=== PATIENT | female | born 1995 | race Two or more races ===

== ENCOUNTER 2016-09-11 23:55 | Emergency (ER) | payer OTHER ==
--- NOTE | ~2016-09-11 | CR170 ---
[facility] A Service of [facility] & [facility] RADIOLOGY TEXT RESULTS PATIENT: JEANNETTE MCHUGH LOCATION: [facility] : 95 UNIT #: [id number] AGE: [address]: Marcos Boo MD SEX: F ORDER DR: [id number] [facility] [address] [place], [place] [address] [id number] E MR#: [id number] Acc #: [id number] NAME: JEANNETTE MCHUGH : 1995 SEX: F STUDY DATE/TIME: 09/11/2016 23:59 UNIT: [facility] ROOM: STUDY DESCRIPTION: CR Knee 2 Views Rt Attending Physician: Marcos Boo M.D. Ordering Physician: Ed Doctor [id number] [facility] Primary Care Physician: Primary Care Physician No MEDICAL IMAGING REPORT This report is preliminary unless electronic signature is present EXAM Right knee 09/11/2016 INDICATIONS 20-year-old female who fell at work. Pain in the right knee, 2 views right knee no comparisons. FINDINGS AP and lateral projection of the knee shows smooth articular anatomy without indication of fracture or dislocation at the major weight-bearing surface of the knee. There is no indication of radiopaque foreign body about the knee surface or joint effusion. IMPRESSION Normal right knee. Dictated by... Simon Wadsworth M.D. THIS IS AN ELECTRONICALLY VERIFIED REPORT Simon Wadsworth M.D. at 09/15/2016 9:12 AM Bonny TD: 09/12/2016 08:14 JOB #: [id number] MEDICAL IMAGING REPORT Page 1 of 1 COPY
--- NOTE | ~2016-09-11 | CR20 ---
[facility] A Service of [facility] & [facility] RADIOLOGY TEXT RESULTS PATIENT: JEANNETTE MCHUGH LOCATION: [facility] : 95 UNIT #: [id number] AGE: [address]: Marcos Boo MD SEX: F ORDER DR: [id number] [facility] [address]. [place], [place] [address] [id number] E MR#: [id number] Acc #: [id number] NAME: JEANNETTE MCHUGH : 1995 SEX: F STUDY DATE/TIME: 09/11/2016 23:14 UNIT: [facility] ROOM: STUDY DESCRIPTION: CR Ankle Min 3 Views Lt Attending Physician: Marcos Boo M.D. Ordering Physician: Christine Quezada M.D. Primary Care Physician: Primary Care Physician No MEDICAL IMAGING REPORT This report is preliminary unless electronic signature is present EXAM Left ankle 3 views 09/11/2016 INDICATION Fell at work. Left ankle pain anteriorly. Tib-fib pain. Symptoms began tonight after the fall. TECHNIQUE 3 views. COMPARISON None. FINDINGS There is no acute fracture. Ankle mortise intact. Soft tissues within normal limits. IMPRESSION Negative. Dictated by... Simon Wadsworth M.D. THIS IS AN ELECTRONICALLY VERIFIED REPORT Simon Wadsworth M.D. at 09/15/2016 9:12 AM HOLDEN/camacho TD: 09/12/2016 08:02 JOB #: [id number] MEDICAL IMAGING REPORT Page 1 of 1 COPY
--- NOTE | ~2016-09-11 | CR252 ---
[facility] A Service of [facility] & [facility] RADIOLOGY TEXT RESULTS PATIENT: JEANNETTE MCHUGH LOCATION: [facility] : 95 UNIT #: [id number] AGE: [address]: Marcos Boo MD SEX: F ORDER DR: [id number] [facility] [address] [place], [place] [address] [id number] E MR#: [id number] Acc #: [id number] NAME: JEANNETTE MCHUGH : 1995 SEX: F STUDY DATE/TIME: 09/11/2016 23:10 UNIT: [facility] ROOM: STUDY DESCRIPTION: CR Tibia and Fibula 2 Views Lt Attending Physician: Marcos Boo M.D. Ordering Physician: Christine Quezada M.D. Primary Care Physician: Primary Care Physician No MEDICAL IMAGING REPORT This report is preliminary unless electronic signature is present EXAM Left tibia-fibula AP and lateral HISTORY Leg pain and swelling after fall today. FINDINGS There is no evidence of fracture, dislocation, or radiopaque foreign body. IMPRESSION Normal left tibia and fibula. Dictated by... Mitch Fernández M.D. THIS IS AN ELECTRONICALLY VERIFIED REPORT Mitch Fernández M.D. at 09/12/2016 2:59 PM DFCassius/kirill TD: 09/12/2016 07:56 JOB #: [id number] MEDICAL IMAGING REPORT Page 1 of 1 COPY
== END 2016-09-12 00:50 | disposition home or self-care (01) ==
LOC: CED 23:55
DX: S80.12XA Contusion of left lower leg, initial encounter (principal); W18.09XA Striking against other object with subsequent fall, initial encounter; Y93.89 Activity, other specified; Y92.69 Other specified industrial and construction area as the place of occurrence of the external cause; Y99.0 Civilian activity done for income or pay
CPT/HCPCS: 73560; 73590; 73610; 84703; 99284